=== PATIENT | male | born 1930 | race Caucasian/White ===

== ENCOUNTER 2016-12-09 06:25 | Emergency (ER) | payer MEDICARE ==
[~2016-12-09] VITALS: Ht 170.2 cm; Wt 113.4 kg
[2016-12-09 06:50] LABS: LYMPH # 1.1 K/mm3 (0.7-4.5); LYMPH % 5.2 % (10-50)
[2016-12-09 06:52] LABS: HEMOGLOBIN 19.1 g/dL (14.1-18.0)
--- NOTE | 2016-12-09 06:57 | Emergency Room Report ---
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 N Clinical Suspician of Infection? N Mental Status: 1 - Regular (Normal Baseline) Sepsis Risk:Low Sepsis Risk Have you (or family members/close friends) recently traveled outside the [place]? N If Yes, where/when: Have you had exposure to infectious disease within the past month? N TB? Other? Specify: Source patient, RN notes reviewed, EMS, old records Exam Limitations no limitations Comment pt with progressive abd pain since sat pm with nausea but no vomiting and no melena and no diarrhea - no chest pain and pain rad to l/s area - no fever and no tob or etoh Cardiac Chest Pain Chest pain indicative of cardiac No Timing/Duration this morning Severity moderate ALLERGIES Coded Allergies: No Known Allergies (12/09/16) Home Medications Reported Medications No Known Home Medications History Medical History General CAD? No Angina: No IN: No Hypertension? No Hyperlipidemia? No CHF? No DVT? No PE? No COPD? No Asthma? No Anemia? No GERD? No Gastric ulcers? No GI Bleed? No Hernia? No Thyroid Problems? No Hypothyroidism? No CVA? No Seizures? No Diabetes? No Renal Insuffiency? No End Stage Renal Disease? No UTI? No Stones? No BPH? No GB Disease: No Nephritic Syndrome? No Asplenia? No Hepatitis? No Sickle Cell Disease? No Arthritis? No Migraines? No Cataracts? No Glaucoma? No MRSA? No HIV? No TB? No Anxiety? No Depression? No Cancer? No More? No Immunization Hx DT/Tetanus Unknown Surgical Hx Previous Surgery?Y PROSTATE Hernia Repair Social History Smoking Hx Smoker: Former Smoker Tobacco: No Alcohol Alcohol: No Drugs none Additionial History Additional History he denied diabetes Review of Systems All Other Systems Reviewed and Negative Constitutional denies fever Eyes denies drainage ENT denies: ear pain, epistaxis, throat pain. Respiratory denies cough, denies shortness of breath, denies wheezing Cardiovascular denies chest pain, denies palpitations, denies syncope Gastrointestinal see HPI, constipation, nausea Genitourinary denies: dysuria, frequency, hesitancy, hematuria. Musculoskeletal denies back pain, denies joint pain, denies joint swelling, denies neck pain Skin denies rash Psychiatric/Neurological denies headache, denies seizure Physical Exam Vital Signs Vital Signs Date Time Temp Pulse Resp B/P Pulse O2 O2 Flow FiO2 Ox Delivery Rate 12/09 0832 97.5 93 22 157/96 98 2 12/09 0821 22 12/09 0744 98.7 89 18 156/93 93 99 12/09 0738 89 18 156/93 93 12/09 0627 98.7 101 18 201/119 93 - WBC >12,000 or <4,000 or 10% bands? 2 or more SIRS Criteria Met? B/P:156/93 MAP:146 Creatinine >2.0? UA output<0.5ml/kg/hr for 2 hrs? Platelet count >100,000? Lactate >2.0mmol/1? INR >1.2 or PTT > than 60 sec? Evidence of Organ Dysfunction? Provider documented clinical suspician of infection? N Sepsis Criteria Count: 1 Sepsis Risk: Low Sepsis Risk General Appearance no apparent distress Eye Exam - bilateral eye PERRL, bilateral eye EOMI Comment no icterus Ear, Nose, Throat normal ENT inspection Neck non-tender Respiratory Status No: respiratory distress. Lung Sounds bilateral: lungs clear. 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 No Results/Orders Laboratory Tests 12/09/16 0745: Lactic Acid 10.4 H 12/09/16 0635: Sodium 146 H, Potassium 3.9, Chloride 106, Carbon Dioxide 16 L, BUN 27 H, Creatinine 2.0 H, Estimated Creat Clear 42 L, Estimated GFR (MDRD) 32, Glucose 218 H, Calcium 9.8, Total Bilirubin 1.2 H, AST 54 H, ALT 34, Alkaline Phosphatase 74, Creatine Kinase 184, CK-MB (CK-2) Rel Index 10.8 *H, CK and CKMB Interp 19.8 *H, Troponin I 5.26 H, Total Protein 8.3 H, Albumin 3.7, Globulin 4.6 H, Albumin/Globulin Ratio 0.8 L, Amylase 155 H, WBC 20.8 *H, RBC 6.12, Hgb 19.1 *H, Hct 58.4 H, MCV 95.4, RDW 13.4, Plt Count 307, MPV 6.5 L, Gran % 88.8 H, Gran # 18.4 H, Total Counted Pending, Lymphocytes % 5.2 L, Monocytes % 5.6, Eosinophils % 0.2, Basophils % 0.2, Neutrophils Pending, Lymphocytes ( Manual) Pending, Lymphocytes # 1.1, Monocytes # 1.2 H, Eosinophils # 0.0, Basophils # 0.0, Platelet Estimate Pending, PUBS MCHC 32.8, MCH 31.3 H Current Medication Orders Sig/Stephanie Start time Last Medication Dose Route Stop Time Status Admin Morphine Sulfate 2 MG ONCE ONE 12/09 08 DC 12/09 IV 12/09 0831 0821 Ondansetron HCl 4 MG ONCE ONE 12/09 0830 DC 12/09 IV 12/09 0831 0820 Morphine Sulfate 0 .STK-MED ONE 12/09 08 DC .ROUTE Ondansetron HCl 0 .STK-MED ONE 12/09 0819 DC .ROUTE Sodium Chloride 1,000 ML .STK-MED ONE 12/09 0816 DC IV Sodium Chloride 1,000 ML .Q4H 12/09 0815 AC 12/09 IV 12/09 1214 0821 Sodium Chloride 10 ML PRN PRN 12/09 0815 AC IV 12/10 0815 Sodium Chloride 10 ML PRN PRN 12/09 0645 AC IV 12/10 0636 Albuterol/Ipratropium 0 .STK-MED ONE 12/09 0637 DC INH Orders Procedure Date/time Status DIET-NOTHING BY MOUTH 12/09 B Active ELECTROCARDIOGRAM REQUEST 12/09 0803 Active OXYGEN REQUEST 12/09 0706 Active ELECTROCARDIOGRAM REQUEST 12/[address] ABD/PELVIS REQ 12/09 636 Complete CHEST-AP VIEW ONLY 12/09 636 Active IV SALINE LOCK 12/09 636 Active 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 ST/Twave chgs, RBBB XRAY/CT/US XRAY/CT/US 1 XRAY chest XR interpretation by reviewed by me Xray Results abnormal (cm) XRAY/CT/US 2 CT abdomen, pelvis CT interpretation by discussed w/radiologist Time results known: 08 CT Results abnormal (see report) Departure Departure Time of Disposition 08 Disposition DC/XFER from ER to [facility] Clinical Impression Primary Impression: Abdominal pain Qualifiers: Abdominal location: generalized Qualified Code: R10.84 - Generalized abdominal pain Secondary Impressions: Ileus, Ischemic bowel syndrome, Non-STEMI (non-ST elevated myocardial infarction), RBBB (right bundle branch block with left anterior fascicular block) Condition STABLE Prescriptions Current Visit Scripts No Known Home Medications ED Critical Care Critical Care Yes Time spent 75-104 min Vital system(s) involved: ischemic bowel I was present at bedside for Coordinating pt's care, Interpreting EKGs/Strips , Reviewing lab results, Reviewing old records, Examining radiographs at 0834
--- NOTE | 2016-12-09 08:11 | RADIOLOGY REPORT PS360 ---
CT ABD PELVIS W/O CONTRAST ORDERING PHYSICIAN : Daniel North MD PATIENT AGE: 86 years GENDER: Male INDICATION: ABD PAIN short of breath Epigastric pain TECHNIQUE: CT abdomen and pelvis without oral nor IV contrast. Sagittal and coronal reconstruction CT workstation COMPARISON: None FINDINGS Lower thorax:. Bibasilar dependent atelectasis. Mild pleural thickening posterior right base posteriorly. Prominent cardiomegaly. Coronary artery calcification, fairly extensive Mild vascular engorgement . Abdomen and pelvis. Decreased sensitivity with lack IV contrast LIVER modest size liver Vague 8 mm diameter 10 mm height likely cyst anterior margin left lobe coronal image 45. Measures near fluid density Vague nonspecific low-density area left lobe liver 8 mm size, axial slice 21, possibly small cyst but difficult to determine . Consider ultrasound liver follow-up Gallbladder.Partially contracted no gallstones evident Spleen. Unremarkable. Normal size. Pancreas. Unremarkable relatively small atrophic. Adrenals. Unremarkable. Kidneys no urinary tract calculi nor obstruction. Mild cortical thinning most evident right kidney. 2.3 cm x 1 cm most likely debris-filled cyst off lower pole left kidney GI TRACT: Stomach appears satisfactory as does appear to be some fluid at the distal esophagus appears reflect reflux or may reflect a hiatal hernia. Stomach nondistended .Small bowel. The proximal small bowel appears fairly normal. However distal small bowel contains undigested food material throughout and increased gas with air-fluid levels and borderline distended. There is mild wall thickening suspected distal small bowel. These loops of small bowel congregated anteriorly into to the generous mesenteric fat. This appearance most likely reflects an ileus or some mechanical alteration of small bowel dynamics. Are all likely lies normal? .Terminal ileum is normal caliber with upper normal wall thickness. Appendix visualized and normal.. . Large Bowel: Generous stool the right colon with moderate stool throughout the remainder the colon. . Colonic diverticulosis most extensive at sigmoid colon but does continue into the left and transverse colon.. Upper normal wall thickness at transverse colon most likely reflects lack of distention. No liquid stool no free air. PELVIS Moderate sized prostate. Bladder appears normal. No wall thickening. No free fluid abdomen or pelvis.. No free air. No significant retroperitoneal nor mesenteric adenopathy. Abundant intra-abdominal adipose . Atherosclerotic calcification origin of left renal artery, celiac artery with minimal as calcified at atherosclerotic plaque at origin of generous size SMA.. ANNY is also visualized & mild/ moderate size. Osseous: no acute findings or focal lesions. Likely old healed posterior 11th rib fracture No compression fractures. Diffuse senile ankylosis of spine. Hypertrophy of spinous process such as they articulate with some ankylosis posteriorly here. Prominent sclerosis, with probable nd ankylosis of SI joints incidentally noted in this 86-year-old . IMPRESSION: ...... 1. Small bowel: Mild/moderate abnormal appearance. Suspect developing enteritis and/or possible ileus. Doubt early obstruction at this point but if symptoms progress consider follow-up . Generous undigested food filling small bowel with borderline-slightly dilated distal small bowel loops.This reflects altered bowel dynamics. . Moderate air-fluid levels and borderline wall thickening of distal small bowel loops. Suspect developing enteritis and/or possible ileus. 2. Generous stool right colon with moderate stool throughout remainder of colon. ... Diffuse Colonic diverticulosis most pronounced sigmoid colon. No diverticulitis identified. ... Upper normal wall thickness at transverse colon, most likely reflects lack of distention. Doubt colitis 3. Prominent Cardiomegaly. Consider CXR. Suspect mild vascular engorgement. 4. No urinary tract obstruction Appendix normal. No free air or fluidabdomen or pelvis.No inflammatory changes
--- NOTE | 2016-12-09 09:29 | RADIOLOGY REPORT PS360 ---
CHEST-AP VIEW ONLY ORDERING PHYSICIAN : Daniel North MD PATIENT AGE: 86 years GENDER: Male INDICATION: SHORTNESS OF BREATH' TECHNIQUE: AP portable upright chest. Quit smoking 15 years ago. Severe short of breath. FINDINGS No studies prior to today are available for comparison. COMPARISON is made to today's CT study. There is some mild atelectasis toward lung bases perhaps present but no focal pneumonia port no active disease evident at the chest. No pleural effusions no pneumothorax. Mild hyperexpansion at the upper lung bullock. Cardiomegaly with left ventricular configuration. Flakita and mediastinal structures unremarkable Slightly lordotic chest projection today on this AP study. IMPRESSION: Lungs clear with nothing definitely acute. Only mild bibasilar atelectasis suggested. Cardiomegaly left ventricular configuration.
[2016-12-09 09:37] VITALS: BP 133/95
[2016-12-09 10:29] LABS: NEUTROPHILS 86 % (42-76)
== END 2016-12-09 09:38 | disposition short-term general hospital (02) ==
LOC: ER 06:25
PROVIDERS: Emergency Medicine
DX: R10.84 Generalized abdominal pain (principal); K56.7 Ileus, unspecified; K55.059 Acute (reversible) ischemia of intestine, part and extent unspecified; I21.4 Non-ST elevation (NSTEMI) myocardial infarction; Z87.891 Personal history of nicotine dependence; I45.10 Unspecified right bundle-branch block
CPT/HCPCS: J2405